=== PATIENT | male | born 2000 | race Two or more races ===

== ENCOUNTER 2020-05-29 09:00 | Emergency (ER) | payer MEDICAID ==
[~2020-05-29] VITALS: Ht 172.7 cm; Wt 93.0 kg
[2020-05-29] MEDS ORDERED: ACETAMINOPHEN 325MG TABLET PO ONE (09:45)
[2020-05-29] MEDS ORDERED: LIDOCAINE HCL/EPINEPHRINE 1%-EPI 1:100,000 20 ML VIAL INFIL ONE (12:15)
[2020-05-29 13:09] VITALS: BP 130/58
== END 2020-05-29 13:12 | disposition home or self-care (01) ==
LOC: ER 09:00
DX: S00.83XA Contusion of other part of head, initial encounter (principal); S41.132A Puncture wound without foreign body of left upper arm, initial encounter; S60.221A Contusion of right hand, initial encounter; S20.212A Contusion of left front wall of thorax, initial encounter; S50.01XA Contusion of right elbow, initial encounter; Y04.2XXA Assault by strike against or bumped into by another person, initial encounter; Y93.89 Activity, other specified; Y92.89 Other specified places as the place of occurrence of the external cause
CPT/HCPCS: 12001; 70450; 71045; 71250; 73080; 73130; 99285; J3490; Z7610